=== PATIENT | female | born 2005 | race Caucasian/White ===

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

== ENCOUNTER 2023-05-10 09:35 | Day surgery (SDC) | payer MEDICAID ==
[~2023-05-10] VITALS: Ht 162.6 cm; Wt 59.0 kg
[~2023-05-10 09:35] MED LIST changes: +AUG875 PO
[2023-05-10 10:15] LABS: HCG,QUAL RESULT NEGATIVE (NEGATIVE)
[2023-05-10] MEDS ORDERED: GLYCOPYRROLATE 0.2 MG/ML VIAL ONE (10:31)
[2023-05-10] MEDS ORDERED: LR 1,000 ML IV.SOLN IV ONE (10:31)
[2023-05-10] MEDS ORDERED: MUPIROCIN 2% TOPICAL OINTMENT 22 GM ONE (10:31)
[2023-05-10] MEDS ORDERED: MIDAZOLAM HCL 2 MG/2 ML VIAL (VERSED) ONE (10:31)
[2023-05-10] MEDS ORDERED: SEVOFLURANE 15 MIN GAS INH ONE (10:31)
[2023-05-10] MEDS ORDERED: NEOSTIGMINE METHYLSULFATE 1 MG/ML, 10 ML VIAL ONE (10:31)
[2023-05-10] MEDS ORDERED: SUCCINYLCHOLINE CHLORIDE 20 MG/ML(QUELICIN) ONE (10:31)
[2023-05-10] MEDS ORDERED: PROPOFOL 200MG/ 20ML VIAL (DIPRIVAN) IV ONE (10:31)
[2023-05-10] MEDS ORDERED: NS IRRIG SOLN 1000 ML IR ONE (10:31)
[2023-05-10] MEDS ORDERED: DEXAMETHASONE SOD PHOSPHATE 4 MG/ML VIAL ONE (10:31)
[2023-05-10] MEDS ORDERED: KETOROLAC TROMETHAMINE 30 MG VIAL ONE (10:31)
[2023-05-10] MEDS ORDERED: fentaNYL CITRATE/PF 100 MCG/2 ML AMP ONE (10:31)
[2023-05-10] MEDS ORDERED: LIDOCAINE/EPI 1% 1:100000 20 ML VIAL ONE (10:31)
[2023-05-10] MEDS ORDERED: ROCURONIUM BROMIDE 10 MG/ML (ZEMURON) ONE (10:31)
[2023-05-10] MEDS ORDERED: ONDANSETRON HCL 4 MG/2 ML VIAL ONE (10:31)
[2023-05-10 10:53] VITALS: O2SAT 99
[2023-05-10] MEDS ORDERED: HYDROmorphone 1 MG/ML INJ. CARTRIDGE IVP PRN ×2 (13:30→16:30)
[2023-05-10] MEDS ORDERED: IBUPROFEN 600 MG TABLET PO ONE (13:30)
[2023-05-10] MEDS ORDERED: KETOROLAC TROMETHAMINE 30 MG VIAL IVP PRN ×2 (13:30→16:30)
[2023-05-10] MEDS ORDERED: ONDANSETRON HCL 4 MG/2 ML VIAL IVP PRN ×2 (13:30→16:30)
[2023-05-10] MEDS ORDERED: HYDROmorphone 2 MG/ML VIAL IVP PRN (16:30)
[2023-05-10] MEDS ORDERED: LR 1,000 ML IV SCH (16:30)
[2023-05-10 18:05] VITALS: BP_SYST 101; PULSE 79; RESP 16
== END 2023-05-10 18:11 | disposition home or self-care (01) ==
LOC: SDS 09:35 → SMU 09:38 → SDS 18:11
PROVIDERS: ATTEND Otolaryngology
DX: J34.2 Deviated nasal septum (principal); D38.5 Neoplasm of uncertain behavior of other respiratory organs; J34.3 Hypertrophy of nasal turbinates; J30.1 Allergic rhinitis due to pollen; J34.89 Other specified disorders of nose and nasal sinuses
CPT/HCPCS: 84703; 88305; 88311; 30520; 30140; J2710; J1100; J3490; J1885; J3465; J2405; J2704; J0330; J3010; J7120